=== PATIENT | male | born 1975 | race Caucasian/White ===

== ENCOUNTER 2023-04-30 13:57 | Inpatient (IN) | payer SELFPAY ==
[2023-04-30 14:44] VITALS: BMI 21.6
[2023-04-30] MEDS ORDERED: chlordiazePOXIDE HCL 25 MG CAPSULE PO ONE (15:20)
[2023-04-30] MEDS ORDERED: chlordiazePOXIDE HCL 25 MG CAPSULE PO PRN (15:20)
[2023-04-30] MEDS ORDERED: IBUPROFEN 600 MG TABLET (FP) PO PRN (15:44)
[2023-04-30] MEDS ORDERED: POLYETHYLENE GLYCOL (HEALTHYLAX) 3350 17 GM PACKET PO PRN (15:44)
[2023-04-30] MEDS ORDERED: MAG HYDROX/AL HYDROX/SIMETH 30 ML UNIT-DOSE CUP PO PRN (15:44)
[2023-04-30] MEDS ORDERED: ONDANSETRON *ODT* 4 MG TABLET SL PRN (15:44)
[2023-04-30] MEDS ORDERED: BISMUTH SUBSALICYLATE 262 MG/15 ML BTL PO PRN (15:44)
[2023-04-30] MEDS ORDERED: BENZOCAINE/MENTHOL (CHLORASEPTIC ) LOZENGE MM PRN (15:44)
[2023-04-30] MEDS ORDERED: P-EPHED 60MG/TRIPROLIDI 2.5MG TABLET PO PRN (15:44)
[2023-04-30] MEDS ORDERED: MAGNESIUM HYDROX 2400MG/30ML ORAL SUSPENSION 30 ML CUP PO PRN (15:44)
[2023-04-30] MEDS ORDERED: guaiFENesin 600 MG TABLET.ER (FP) PO PRN (15:44)
[2023-04-30] MEDS ORDERED: BENZONATATE 200 MG CAPSULE PO PRN (15:44)
[2023-04-30] MEDS ORDERED: IBUPROFEN 400 MG TABLET (FP) PO PRN (15:44)
[2023-04-30] MEDS ORDERED: DICYCLOMINE HCL 10 MG CAPSULE PO PRN (15:44)
[2023-04-30] MEDS ORDERED: NICOTINE POLACRILEX 2 MG GUM BUC PRN (15:44)
[2023-04-30] MEDS ORDERED: LOPERAMIDE HCL 2 MG CAPSULE PO PRN (15:44)
[2023-04-30] MEDS ORDERED: ACETAMINOPHEN 325 MG TABLET (FP) PO PRN (15:44)
[2023-04-30] MEDS ORDERED: chlordiazePOXIDE HCL 25 MG CAPSULE ONE (16:36)
[2023-04-30 18:21] VITALS: RESP 16
[2023-04-30] MEDS ORDERED: THIAMINE HCL 100 MG TABLET (FP) PO SCH (22:00)
[2023-04-30] MEDS ORDERED: MELATONIN 5 MG TABLETS PO SCH (22:00)
[2023-04-30] MEDS: chlordiazePOXIDE HCL 25 MG CAPSULE PO SCH (22:09)
[2023-05-01] MEDS: chlordiazePOXIDE HCL 25 MG CAPSULE PO SCH ×2 (06:00→10:06)
[2023-05-01 09:29] VITALS: BP 114/74; PULSE 69; TEMP 97.3
[2023-05-01] MEDS ORDERED: PRENATAL VITAMINS W/ FOLIC ACID TABLET (FP) PO SCH (10:00)
[2023-05-01 10:39] LABS: CHLORIDE 102 mmol/L (98-107); POTASSIUM 3.6 mmol/L (3.5-5.1); SODIUM 138 mmol/L (136-145)
[2023-05-01 10:41] LABS: CALCIUM 8.5 mg/dL (8.5-10.1)
[2023-05-01 10:42] LABS: ALBUMIN 3.1 g/dl (3.4-5.0); ANION GAP 4 mmol/L (4-13); CO2 32 mmol/L (21-32); GLUCOSE,RANDOM 135 mg/dL (74-106)
[2023-05-01 10:45] LABS: CREATININE 0.7 mg/dL (0.55-1.3); SGOT/AST 70 U/L (15-37); SGPT/ALT 57 U/L (13-61)
[2023-05-01 10:46] LABS: BILIRUBIN,TOTAL 0.6 mg/dL (0.2-1)
[2023-05-01 10:48] LABS: TOT PROT 7.3 g/dl (6.4-8.2)
[2023-05-01 10:49] LABS: ALK PHOS 128 U/L (45-117)
[2023-05-01 12:19] LABS: HEMATOCRIT 40.4 % (35.4-49); HEMOGLOBIN 13.5 GM/dL (11.7-16.9); MCH 34.5 pg (25.7-33.7); MCHC 33.5 g/dl (32.0-35.9); MEAN CELL VOLUME 103.2 fl (80-96); MEAN PLT VOLUME 9.3 fl (7.5-11.1); PLATELET COUNT 145 10^3/uL (134-434); RBC 3.91 M/mm3 (4.00-5.60); RDW 11.9 % (11.9-15.9); WHITE BLOOD COUNT 3.7 K/mm3 (4.0-10.0)
[2023-05-02] MEDS ORDERED: chlordiazePOXIDE HCL 25 MG CAPSULE PO SCH (05:00)
[2023-05-03] MEDS ORDERED: chlordiazePOXIDE HCL 10 MG CAPSULE PO PRN
[2023-05-03] MEDS ORDERED: chlordiazePOXIDE HCL 10 MG CAPSULE PO SCH (05:00)
[2023-05-04] MEDS ORDERED: chlordiazePOXIDE HCL 10 MG CAPSULE PO SCH (05:00)
[2023-05-05] MEDS ORDERED: chlordiazePOXIDE HCL 10 MG CAPSULE PO ONE (05:00)
== END 2023-05-01 13:40 | disposition left against medical advice (07) | DRG 770 ==
LOC: YASAS 13:57 → Y6N 17:21
PROVIDERS: ADMIT Allergy & Immunology; ATTEND Surgery
PROC: HZ2ZZZZ Detoxification Services for Substance Abuse Treatment (ICD-10-PCS; principal; 2023-04-30)
DX: F10.230 Alcohol dependence with withdrawal, uncomplicated (principal); F17.210 Nicotine dependence, cigarettes, uncomplicated
CPT/HCPCS: 36415; 80053; 80307; 85027; 86780; 87635; 87811